=== PATIENT | female | born 1970 | race Caucasian/White ===

== ENCOUNTER 2019-06-08 22:48 | Emergency (ER) | payer BC ==
[2019-06-08] MEDS ORDERED: CHERRY SYRUP 10 ML UDC PO ONE (23:34)
[2019-06-08] MEDS ORDERED: DEXAMETHASONE 10 MG/ML VIAL PO STA (23:34)
[2019-06-08] MEDS ORDERED: KETOROLAC 60 MG/2 ML VIAL IM STA (23:35)
--- NOTE | 2019-06-08 23:35 | ED Physician Documentation ---
PD HPI LOWER EXT INJURY - Stated complaint Stated Complaint: R HIP, LEG PX - Chief complaint Chief Complaint: Ext Problem - History obtained from History obtained from: Patient, Family - History of Present Illness PD HPI LOW EXT INJURY LOCATION: Left, Hip Type of injury: Other (over use) Where injury occurred: Home Timing - onset: How many days ago (5) Timing - duration: Days Timing - details: Gradual onset, Still present Improved by: Rest, Immobilization Worsened by: Moving, Palpating Associated symptoms: No: Weakness, Numbness, Tingling, Swelling Contributing factors: No: Anticoagulated Similar symptoms before: Diagnosis (sciatica) Recently seen: Not recently seen - Additional information Additional information: 49-year-old female previously well has been helping her daughter moved to [facility]. She drove with her daughter cross-country over the past 5 days and she has now gone to help her daughter move into her barracks. The hotel she is staying and has no elevator and she is staying on the second floor. Her daughter is staying on the second floor the barracks and has no elevator. She has been carrying boxes up and down the stairs and she is developed pain in her back. She has some pain in her knee and she is specifically worried about pain in her left hip. She states when she goes to bear weight pain is in her hip and back and knee. Review of Systems Constitutional: denies: Fever Eyes: denies: Decreased vision Ears: denies: Ear pain Nose: denies: Congestion Throat: denies: Sore throat Cardiac: denies: Chest pain / pressure, Palpitations Respiratory: denies: Dyspnea, Cough GI: denies: Abdominal Pain, Nausea, Vomiting : denies: Dysuria, Frequency Musculoskeletal: reports: Back pain, Extremity pain, Joint pain, Pain with weight bearing Neurologic: denies: Generalized weakness, Focal weakness, Numbness PD PAST MEDICAL HISTORY - Present Medications Home Medications: Ambulatory Orders Medication Instructions Recorded Confirmed Cyclobenzaprine [Flexeril] 10 mg PO TID PRN #20 tablet 06/09/19 Hydrocodone/Acetaminophen 1 - 2 each PO Q6H PRN #14 tablet 06/09/19 [Hydrocodon-Acetaminophen 5-325] - Allergies Allergies/Adverse Reactions: Allergies Allergy/AdvReac Type Severity Reaction Status Date / Time codeine Allergy Anaphylaxis Verified 06/08/19 22:56 Penicillins AdvReac Nausea Verified 06/08/19 22:56 PD ED PE NORMAL - Vitals Vital signs reviewed: Yes (diastolic hypertension) - General General: Alert and oriented X 3, No acute distress, Well developed/nourished - HEENT HEENT: Atraumatic, PERRL, EOMI - Neck Neck: Supple, no meningeal sign - Cardiac Cardiac: RRR, No murmur - Respiratory Respiratory: No respiratory distress, Clear bilaterally - Abdomen Abdomen: Soft, Non tender - Back Back: No CVA TTP, No spinal TTP, Other (There is tenderness to the paraspinous muscles of the lower lumbar spine on the left side extending into the sciatic notch. 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 No evidence of acute fracture.), EMP read indepedently, See rad report PD MEDICAL DECISION MAKING - ED course Complexity details: reviewed results, re-evaluated patient, considered differential, d/w patient, d/w family ED course: 49-year-old female with a pain in her left lower back radiating to the left leg has a negative x-ray for fracture and there is no evidence of avascular necrosis today. She is administered dexamethasone 10 mg orally and 60 mg of Toradol IM. We will provide the patient with pain medication a muscle relaxant. She indicates that she has a reaction to codeine but she is able to take morphine. She does not know about hydrocodone or oxycodone. Departure - Departure Disposition: 01 Home, Self Care Clinical Impression: Sciatica Qualifiers: Laterality: left Qualified Code(s): M54.32 - Sciatica, left side Condition: Stable Instructions: ED Sciatica Follow-Up: Your, doctor [Other] Prescriptions: Cyclobenzaprine [Flexeril] 10 mg PO TID PRN #20 tablet PRN Reason: Spasms Hydrocodone/Acetaminophen [Hydrocodon-Acetaminophen 5-325] 1 - 2 each PO Q6H PRN #14 tablet PRN Reason: pain Discharge Date/Time: 06/09/19 01:29
--- NOTE | 2019-06-09 00:22 | XRAY Report ---
Reason: severe left hip pain Procedure Date: 06/08/2019 Accession Number: [id number] / [id number] Procedure: XR - Hip w/Pelvis 2-3V LT CPT Code: Final Report FULL RESULT: EXAM: LEFT HIP RADIOGRAPHY EXAM DATE: 06/08/2019 11:58 PM. CLINICAL HISTORY: Severe left hip pain. COMPARISON: None. TECHNIQUE: 2 views. FINDINGS: Bones: Normal. No fractures or bone lesion. Joints: Mild osteoarthritis. No dislocation. Soft Tissues: Surgical clips in the pelvis. IMPRESSION: Mild osteoarthritis. No evidence of acute fracture. [facility]
[2019-06-09] MEDS ORDERED: HYDROcod/ACET 5/325 Prepack 4 PO STA (01:05)
[2019-06-09] MEDS ORDERED: CYCLOBENZAPRINE 10 MG Prepack 2 PO PRN (01:06)
[2019-06-09 01:12] VITALS: BP 117/79
== END 2019-06-09 01:29 | disposition home or self-care (01) ==
LOC: ED 22:48
DX: M54.32 Sciatica, left side (principal)
CPT/HCPCS: 73502; 96372; 99283; 99284; A9270